=== PATIENT | male | born 1990 ===

== ENCOUNTER → 2021-02-21 07:46 | Outpatient (CLI) | payer BC, SELFPAY ==
--- NOTE | ~2021-02-21 | US_ITS ---
EXAMINATION: US retroperitoneal duplex ltd DATE: 02/21/2021 08:19 INDICATION: Primary hypertension. TECHNIQUE: Multiple grayscale, color Doppler, and pulsed Doppler images of the kidneys and renal gavi cassandra were obtained. COMPARISON: None. FINDINGS: The aorta peak systolic velocity is 133 cm/s. The right renal artery peak systolic velocity is 121 cm /s in the proximal segment, 77 cm/s in the mid segment, and 93 cm/s in the distal segment. The left r enal artery peak systolic velocity is 117 cm/s in the proximal segment, 99 cm/s in the mid segment, a nd 68 cm/s in the distal segment. IMPRESSION: 1. No Doppler evidence of renal artery stenosis. Reviewed, dictated and finalized at location A. [employer]
== END ==
PROVIDERS: PCP Internal Medicine; Visit Provider Internal Medicine
DX: I10 Essential (primary) hypertension (principal)
CPT/HCPCS: 93976